=== PATIENT | female | born 1975 | race Caucasian/White ===

== ENCOUNTER 2017-07-13 17:45 | Emergency (ER) | payer MEDICAID ==
[~2017-07-13] VITALS: Ht 152.4 cm; Wt 81.6 kg
[2017-07-13 17:51] VITALS: BP_SYST 153
--- NOTE | 2017-07-13 17:54 | NUR ---
Patient triaged and placed in waiting room. VSS and patient appears in no acute distress at this time. Accompanied by DAUGHTER, awaiting available bed, and MD notified of need for MSE.
--- NOTE | 2017-07-13 18:00 | NUR ---
Aurea Sam CERTIFIED PHARMACY TECH evaluating pt at this time.
[2017-07-13] MEDS ORDERED: IBUPROFEN 800 MG TABLET PO ONE (19:00)
--- NOTE | 2017-07-13 19:05 | NUR ---
Placed in hallway.
--- NOTE | 2017-07-13 19:05 | NUR ---
Pt is complaining of R knee and ankle pain from a previous fall. Will continue to monitor. No distress noted. AAOx4.
--- NOTE | 2017-07-13 19:10 | NUR ---
Pt here for evaluation of acute, constant, moderate, aching pain to the right knee and the right ankle s/p a mechanical fall down two stairs just prior to arrival to the ER. Pt denied hitting head, no nausea/vomiting. Pt afebrile, no chest pain, abdominal pain. Pt's pain worse on ambulation. No other remarkable symptoms noted.
[2017-07-13] MEDS ORDERED: BACITRACIN 1 GM OINT TP ONE ×2 (20:00→20:09)
[2017-07-13 21:03] VITALS: BP_SYST 143
--- NOTE | 2017-07-13 21:03 | NUR ---
Note ching in EDM - 07/14/17 at 0733 by [email or web address] Patient given written and verbal discharge instructions and verbalizes understanding. ER discussed with patient the results and treatment provided. Patient in stable condition. ID arm band removed. Rx of norco 5/325 mg tab given. Patient educated on pain management and to follow up with PMD. Pain Scale 3/10 ps. Opportunity for questions provided and answered.
--- NOTE | 2017-07-13 21:03 | NUR ---
Patient given written and verbal discharge instructions and verbalizes understanding. ER DELINQUENT ACCOUNT CLERK Marilee Sam discussed with patient the results and treatment provided. Patient in stable condition. ID arm band removed. Rx of norco 5/325 mg tab given. Patient educated on pain management and to follow up with PMD. Pain Scale 3/10 ps. Opportunity for questions provided and answered.
== END 2017-07-13 21:03 | disposition home or self-care (01) ==
LOC: SED 17:45
DX: S82.091A Other fracture of right patella, initial encounter for closed fracture (principal); S93.401A Sprain of unspecified ligament of right ankle, initial encounter; S80.212A Abrasion, left knee, initial encounter; S80.211A Abrasion, right knee, initial encounter; I10 Essential (primary) hypertension; F32.9 Major depressive disorder, single episode, unspecified; Z88.1 Allergy status to other antibiotic agents; W10.9XXA Fall (on) (from) unspecified stairs and steps, initial encounter; Y93.89 Activity, other specified; Y92.89 Other specified places as the place of occurrence of the external cause; Y99.8 Other external cause status
CPT/HCPCS: 73564; 99284